=== PATIENT | female | born 1985 | race African-American/Black ===

== ENCOUNTER → 2017-01-04 | Outpatient (CLI) | payer BC | LOC: RAD 18:07 | PROVIDERS: ATTEND Family Medicine | DX: M25.511 Pain in right shoulder (principal) ==

== ENCOUNTER 2017-03-15 15:11 | Emergency (ER) | payer OTHER, BC ==
[2017-03-15] MEDS ORDERED: ONDANSETRON 4 MG TAB.RAPDIS SL ONE (16:50)
[2017-03-15] MEDS ORDERED: OXYCODONE-ACETAMINOPHEN 5-325 MG TABLET PO ONE (16:50)
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
[2017-03-15] MEDS ORDERED: HYDROCODONE/ACETAMINOPHEN 5-325 MG 6 TAB/DSPK PO PRN (19:15)
[2017-03-15] MEDS ORDERED: SILVER SULFADIAZINE 1% CREAM 25 GM TP ONE (19:17)
[2017-03-15 20:49] VITALS: BP 106/74
== END 2017-03-15 19:50 | disposition home or self-care (01) ==
LOC: ER 15:11
DX: S09.90XA Unspecified injury of head, initial encounter (principal); S16.1XXA Strain of muscle, fascia and tendon at neck level, initial encounter; S20.211A Contusion of right front wall of thorax, initial encounter; S80.02XA Contusion of left knee, initial encounter; R11.0 Nausea; V43.52XA Car driver injured in collision with other type car in traffic accident, initial encounter
CPT/HCPCS: 99285; 71020; 73562; 70450; 72125; 74177; S0119

== ENCOUNTER 2017-03-19 10:16 | Emergency (ER) | payer OTHER, BC ==
[2017-03-19 10:45] VITALS: BP 142/98
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
--- NOTE | 2017-03-19 12:46 | EKG REPORT ---
SEVERITY:- NORMAL ECG - SINUS RHYTHM : Confirmed by: Delilah Higgins MD 19-Mar-2017 12:45:08
== END 2017-03-19 12:33 | disposition home or self-care (01) ==
LOC: ER 10:16
DX: S20.01XA Contusion of right breast, initial encounter (principal); S20.312A Abrasion of left front wall of thorax, initial encounter; S10.91XA Abrasion of unspecified part of neck, initial encounter; R07.89 Other chest pain; V49.9XXA Car occupant (driver) (passenger) injured in unspecified traffic accident, initial encounter
CPT/HCPCS: 71250; 93005; 93010; 99285

== ENCOUNTER 2019-04-07 17:15 | Emergency (ER) | payer BC, OTHER ==
[2019-04-07] MEDS ORDERED: ASPIRIN 81 MG TABLET, CHEWABLE PO ONE (17:39)
--- NOTE | 2019-04-07 17:41 | ER Document Report ---
ED Medical Screen (RME) - General Chief Complaint: Chest Pain > 30 Stated Complaint: DIFFICULTY BREATHING Time Seen by Provider: 04/07/19 17:38 Mode of Arrival: Ambulatory Information source: Patient Notes: Patient presents with complaints of midsternal chest pain that started at 9 AM today. Pain is worse with palpation. Patient also reports headache off and on for the past 2 weeks for which she has been seen by her doctor previously for. Patient denies any nausea or vomiting but does report some mild diarrhea. Patient reports occasional shortness of breath and sneezing. Patient denies any cough. hx: PE, avascular necrosis, migraines, osteoarthritis I have greeted and performed a rapid initial assessment of this patient. A comprehensive ED assessment and evaluation of the patient, analysis of test results and completion of the medical decision making process will be conducted by additional ED providers. TRAVEL OUTSIDE OF THE [place] IN LAST 30 DAYS: No - Related Data Allergies/Adverse Reactions: No Known Allergies Allergy (Verified 04/07/19 17:19) Past Medical History Renal/ Medical History: Denies: Hx Peritoneal Dialysis Musculoskeltal Medical History: Reports Hx Arthritis Past Surgical History: Reports: Hx Section Physical Exam - Vital signs Vitals: Temp Pulse Resp BP Pulse Ox 98.2 F 96 16 141/98 H 95 04/07/19 17:33 04/07/19 17:33 04/07/19 17:33 04/07/19 17:33 04/07/19 17:33 - Respiratory Respiratory status: No respiratory distress Chest status: Pain with deep breathing Breath sounds: Normal Chest palpation: Tender Course - Vital Signs Vital signs: Temp Pulse Resp BP Pulse Ox 98.2 F 96 16 141/98 H 95 04/07/19 17:33 04/07/19 17:33 04/07/19 17:33 04/07/19 17:33 04/07/19 17:33
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
[2019-04-07 18:11] LABS: ABSOLUTE EOSINOPHILS # (AUTO) 0.5 10^3/uL (0.0-0.6); ABSOLUTE LYMPHOCYTES (AUTO) 1.8 10^3/uL (0.5-4.7); ABSOLUTE MONOCYTES (AUTO) 0.6 10^3/uL (0.1-1.4); ABSOLUTE NEUT (AUTO) 4.2 10^3/uL (1.7-8.2); BASOPHILS % (AUTO) 0.6 % (0-2); EOSINOPHILS % (AUTO) 6.5 % (0-6); HEMATOCRIT 41.4 % (36.0-47.0); LYMPHOCYTES % (AUTO) 24.8 % (13-45); MEAN CORPUSCULAR HEMOGLOBIN 29.5 pg (27.0-33.4); MEAN CORPUSCULAR HGB CONC 33.9 g/dL (32.0-36.0); MEAN CORPUSCULAR VOLUME 87 fl (80-97); MONOCYTES % (AUTO) 8.7 % (3-13); PLATELET COUNT 261 10^3/uL (150-450); RED BLOOD COUNT 4.75 10^6/uL (3.72-5.28); RED CELL DISTRIBUTION WIDTH 13.2 % (11.5-14.0); SEGMENTED NEUTROPHILS % (AUTO) 59.4 % (42-78); TOTAL CELLS COUNTED % (AUTO) 100 %; WHITE BLOOD COUNT 7.1 10^3/uL (4.0-10.5)
[2019-04-07 18:35] LABS: ALANINE AMINOTRANSFERASE 22 U/L (9-52); ALBUMIN 4.4 g/dL (3.5-5.0); ALKALINE PHOSPHATASE 112 U/L (38-126); ANION GAP 5 (5-19); ASPARTATE AMINO TRANSFERASE 23 U/L (14-36); BILIRUBIN,DIRECT 0.2 mg/dL (0.0-0.4); BILIRUBIN,TOTAL 0.3 mg/dL (0.2-1.3); BLOOD UREA NITROGEN 9 mg/dL (7-20); CALCIUM 9.3 mg/dL (8.4-10.2); CARBON DIOXIDE 32 mmol/L (22-30); CHLORIDE 102 mmol/L (98-107); GLUCOSE 86 mg/dL (75-110); LIPASE 75.8 U/L (23-300); POTASSIUM 3.8 mmol/L (3.6-5.0); TOTAL PROTEIN 7.9 g/dL (6.3-8.2)
--- NOTE | 2019-04-07 21:03 | ER Document Report ---
ED General - General Chief Complaint: Chest Pain > 30 Stated Complaint: DIFFICULTY BREATHING Time Seen by Provider: 04/07/19 17:38 Mode of Arrival: Ambulatory Notes: Patient is a 33-year-old female that comes to the emergency department for chief complaint of pain on the center and left side of her chest that started at 9 AM this morning. Pain is worse with palpation and movement. Pain is sharp. She states that it is intermittently worse. She feels it more with deep breathing. She denies injury, fever/chills, shortness of breath, nausea/vomiting. She also reports that she has pain along side of her neck on the left side, occasional headaches that wrap around the side of her head on the left side, occasional migraines. She states she is having these more than usual. She is treated for these at home. Past medical history includes PE (she had this postop left ankle repair while wearing the cast), migraines, . She has an IUD, she does not smoke she completed blood thinners and no longer takes them. TRAVEL OUTSIDE OF THE [place] IN LAST 30 DAYS: No - Related Data Allergies/Adverse Reactions: No Known Allergies Allergy (Verified 04/07/19 17:19) Past Medical History - General Information source: Patient - Social History Smoking Status: Never Smoker Frequency of alcohol use: None Drug Abuse: None Lives with: Family Family History: Reviewed & Not Pertinent Patient has suicidal ideation: No Patient has homicidal ideation: No Pulmonary Medical History: Reports: Hx Pneumonia Neurological Medical History: Reports: Hx Migraine Renal/ Medical History: Denies: Hx Peritoneal Dialysis Musculoskeletal Medical History: Reports Hx Arthritis Past Surgical History: Reports: Hx Section, Hx Orthopedic Surgery - Immunizations Immunizations up to date: Yes Hx Diphtheria, Pertussis, Tetanus Vaccination: Yes Review of Systems - Review of Systems Constitutional: No symptoms reported EENT: No symptoms reported Cardiovascular: See HPI Respiratory: No symptoms reported Gastrointestinal: No symptoms reported Genitourinary: No symptoms reported Female Genitourinary: No symptoms reported Musculoskeletal: See HPI Skin: No symptoms reported Hematologic/Lymphatic: No symptoms reported Neurological/Psychological: No symptoms reported Physical Exam - Vital signs Vitals: Temp Pulse Resp BP Pulse Ox 98.2 F 96 16 141/98 H 95 04/07/19 17:33 04/07/19 17:33 04/07/19 17:33 04/07/19 17:33 04/07/19 17:33 - Notes Notes: GENERAL: Alert and well-appearing. Obese. Studying a text book when I came in the room. HEAD: Normocephalic, atraumatic. EYES: Pupils equal, round, and reactive to light. Extraocular movements intact. ENT: Oral mucosa moist, tongue midline. Oropharynx unremarkable. Airway patent. Nares patent, no nasal septal hematoma, TM's intact. NECK: Full range of motion. Supple. Trachea midline. Pain over the left para cervical with pain in lateral range of motion. Otherwise unremarkable neck exam. LUNGS: Clear to auscultation bilaterally, no wheezes, rales, or rhonchi. No respiratory distress. Left-sided sternal tenderness which is very specific and reproducible. No swelling, erythema, crepitus, or other concerning finding noted. HEART: Regular rate and rhythm. No murmur ABDOMEN: Soft, non-tender. Non-distended. Bowel sounds present in all 4 quadrants. GENITOURINARY: Deferred EXTREMITIES: Moves all 4 extremities spontaneously. No edema, normal radial and dorsalis pedis pulses bilaterally. No cyanosis. BACK: no cervical, thoracic, lumbar midline tenderness. No saddle anesthesia, normal distal neurovascular exam. Moves all extremities in full range of motion. NEUROLOGICAL: Alert and oriented x3. Normal speech. Cranial nerves II through XII grossly intact. PSYCH: Normal affect, normal mood. SKIN: Warm, dry, normal turgor. No rashes or lesions noted. Course - Re-evaluation Re-evalutation: EKG unremarkable. Chest x-ray unremarkable. CBC, chemistry unremarkable. Troponin negative. test is negative. Patient with left-sided paracervical muscle tenderness, she describes what sounds like a tension headache. She is spending a lot of time studying. She was studying went into the room. She appears very well. Low suspicion of any concerning intracranial abnormality's. I did discuss possibility of pulmonary embolism. Patient is not tachycardic, has no lower extremity swelling, no recent risk factors, her only risk factor is previous DVT reportedly. She is also obese. Patient states she absolutely does not feel that she has a blood clot, she has no shortness of breath, her symptoms do not feel at all the same. Patient has symptoms that are reproducible with palpation over her chest wall. Discussed options. Patient given dexamethasone, she has already been on Flexeril muscle relaxer and has had very good results with volume in the past, as result she was given some. Discussed precautions, follow-up, and return precautions. Patient states understanding and agreement. - Vital Signs Vital signs: Temp Pulse Resp BP Pulse Ox 98.2 F 96 22 H 130/96 H 99 04/07/19 17:33 04/07/19 17:33 04/07/19 21:01 04/07/19 21:01 04/07/19 21:01 - Laboratory Result Diagrams: 04/07/19 18:00 04/07/19 18:00 Laboratory results interpreted by me: 04/07/19 04/07/19 18:00 18:00 Eosinophils % 6.5 H Carbon Dioxide 32 H - EKG Interpretation by Me Additional EKG results interpreted by me: EKG sinus rhythm rate of 96, QTC of 435, normal axis, no T wave inversions or ST segment changes in consecutive leads. Discharge - Discharge Clinical Impression: Chest wall pain, Frequent headaches Condition: Stable Disposition: HOME, SELF-CARE Additional Instructions: Your work-up today does not show any concerning findings including her EKG, chest x-ray, labs. Your exam and symptoms are most consistent with chest wall pain with pain along the left sternum. This can take time to resolve. He has been medicated with dexamethasone to help with your tension headaches, migraines, and chest wall. Apply heat to your neck and chest, take [id number] medications, take the muscle relaxer as prescribed at night, follow-up with primary care. Because of frequent headaches consider follow-up with the neurology referral listed. Return if you worsen including fever, vomiting, severe worsening headache, difficulty breathing, passing out, severe chest pain, or any other concerning symptoms. [facility] [address] [id number] Prescriptions: Diazepam [Valium 5 mg Tablet] 1 - 2 tab PO QHS PRN #12 tablet PRN Reason:
[2019-04-07] MEDS ORDERED: DEXAMETHASONE SOD PHOS INJ 10 MG/1 ML VIAL IM ONE (21:04)
--- NOTE | 2019-04-07 21:29 | EKG REPORT ---
SEVERITY:- NORMAL ECG - SINUS RHYTHM : Confirmed by: Delilah Higgins MD 07-Apr-2019 21:28:46
[2019-04-07 21:33] VITALS: BP 130/96
== END 2019-04-07 21:32 | disposition home or self-care (01) ==
LOC: ER 17:15
DX: R51 Headache (principal); R07.89 Other chest pain; Z97.5 Presence of (intrauterine) contraceptive device
CPT/HCPCS: 93005; 99284; 96372; 36415; 83690; 84703; 85025; 80053; 84484; 71046; 93010; J1100

== ENCOUNTER 2019-10-14 08:58 | Emergency (ER) | payer BC, OTHER ==
[2019-10-14 09:02] VITALS: BP 141/84
--- NOTE | 2019-10-14 10:01 | ER Document Report ---
HPI - HPI Patient complains to provider of: Foreign body in rectum Time Seen by Provider: 10/14/19 09:40 Onset: This morning Onset/Duration: Sudden Pain Level: 2 Context: 33-year-old female presents emergency department with a blood plug in her rectum that she cannot get out. Reports area is uncomfortable. Denies other symptoms such as fever vomiting diarrhea. Denies vaginal discharge vaginal pain. Associated Symptoms: None Exacerbated by: Denies Relieved by: Denies Similar symptoms previously: No Recently seen / treated by doctor: No - CONSTITUTIONAL Constitutional: DENIES: Fever, Chills - REPRODUCTIVE Reproductive: DENIES: : Past Medical History - General Information source: Patient - Social History Smoking Status: Never Smoker Chew tobacco use (# tins/day): No Frequency of alcohol use: None Drug Abuse: None Occupation: [employer] Family History: Reviewed & Not Pertinent Patient has suicidal ideation: No Patient has homicidal ideation: No Pulmonary Medical History: Reports: Hx Pneumonia Neurological Medical History: Reports: Hx Migraine Renal/ Medical History: Denies: Hx Peritoneal Dialysis Musculoskeletal Medical History: Reports Hx Arthritis Past Surgical History: Reports: Hx Section, Hx Orthopedic Surgery - Immunizations Immunizations up to date: Yes Hx Diphtheria, Pertussis, Tetanus Vaccination: Yes Vertical Provider Document - CONSTITUTIONAL Agree With Documented VS: Yes Exam Limitations: No Limitations General Appearance: WD/WN, No Apparent Distress - INFECTION CONTROL TRAVEL OUTSIDE OF THE [place] IN LAST 30 DAYS: No - HEENT HEENT: Atraumatic, Normocephalic - NECK Neck: Supple - RESPIRATORY Respiratory: No Respiratory Distress - CARDIOVASCULAR Cardiovascular: Regular Rate - GI/ABDOMEN Gastrointestinal: Abdomen Soft - BACK Back: Normal Inspection - MUSCULOSKELETAL/EXTREMETIES Musculoskeletal/Extremeties: MAEW, FROM - NEURO Level of Consciousness: Awake, Alert, Appropriate Motor/Sensory: No Motor Deficit - DERM Integumentary: Warm, Dry Course - Re-evaluation Re-evalutation: 10/14/19 11:54 Black small blood plug removed with very little problems. Patient was ins tructed to monitor her rectum for signs of infection irritation redness bleeding. She verbalized understanding to all instructions. She was also cautioned not to insert the blood plug again. - Vital Signs Vital signs: Temp Pulse Resp BP Pulse Ox 98.7 F 85 16 141/84 H 97 10/14/19 09:01 10/14/19 09:01 10/14/19 09:01 10/14/19 09:01 10/14/19 09:01 Discharge - Discharge Clinical Impression: foreign body removal from rectum Condition: Stable Disposition: HOME, SELF-CARE Additional Instructions: *You have been written for the removal of a foreign body from your rectum Take Tylenol or Motrin as indicated for pain *Follow up with your primary care provider for recheck within 1 week *Return to ED for worsening condition, changes, needs, rectal bleeding, concerns Forms: Return to Work
== END 2019-10-14 10:08 | disposition home or self-care (01) ==
LOC: ER 08:58
DX: T18.5XXA Foreign body in anus and rectum, initial encounter (principal); X58.XXXA Exposure to other specified factors, initial encounter
CPT/HCPCS: 99283